=== PATIENT | male | born 1975 | race Caucasian/White ===

== ENCOUNTER 2019-11-06 12:47 | Emergency (ER) | payer OTHER ==
[2019-11-06] MEDS ORDERED: Diphtheria,Pertussis(Acell),Tetanus Vaccine 0.5 ML Syringe IM ONE (13:39)
--- NOTE | 2019-11-06 13:42 | EDM.PDOC ---
ED HPI GENERAL MEDICAL PROBLEM - General Chief Complaint: Upper Extremity Injury/Pain Stated Complaint: L SHOULDER INJURY Time Seen by Provider: 11/06/19 13:27 Source of Information: Reports: Patient History Limitations: Reports: No Limitations - History of Present Illness INITIAL COMMENTS - FREE TEXT/NARRATIVE: 44-year-old male presents to the ED for evaluation of an injury sustained in the workplace about an hour prior to arrival in the ED. 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 Somehow the laura slipped out of place and struck him in the posterior aspect of his left shoulder knocking him about 5 to 6 feet ahead and to the ground on his knees. He states since that time he can feel crepitus when he tries to move his shoulder particularly in abduction. Also painful abduction. Denies any other injuries. He does not know when his last tetanus toxoid was updated. 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: Other (see below) (.) Left Shoulder Pain Score (Numeric/FACES): 10 - Related Data Allergies Allergy/AdvReac Type Severity Reaction Status Date / Time No Known Allergies Allergy Verified 11/06/19 13:04 Home Meds: Home Meds oxyCODONE HCl/Acetaminophen [Percocet 5-325 mg Tablet] 1 - 2 each PO Q4H PRN #30 tablet 11/06/19 [Rx] polyethylene glycoL 3350 [MiraLAX] 17 gm PO DAILY #1 container 11/06/19 [Rx] Past Medical History - Past Health History Medical/Surgical History: Denies Medical/Surgical History Social & Family History - Tobacco Use Smoking Status *Q: Current Every Day Smoker Years of Tobacco use: 30 Packs/Tins Daily: 1.5 - Caffeine Use Caffeine Use: Reports: None - Recreational Drug Use Recreational Drug Use: Yes Recreational Drug Type: Reports: Marijuana/Hashish Review of Systems - Review of Systems Review Of Systems: See Below Constitutional: Reports: No Symptoms Eyes: Reports: No Symptoms Ears: Reports: No Symptoms Nose: Reports: No Symptoms Mouth/Throat: Reports: No Symptoms Respiratory: Reports: No Symptoms Cardiovascular: Reports: No Symptoms GI/Abdominal: Reports: No Symptoms Genitourinary: Reports: No Symptoms Musculoskeletal: Reports: Shoulder Pain, Back Pain (Occasional pauses low back pain) Skin: Reports: No Symptoms (Having left-sided posterior shoulder pain from blunt trauma today.) Neurological: Reports: No Symptoms Psychiatric: Reports: No Symptoms ED EXAM, GENERAL - Physical Exam Exam: See Below Exam Limited By: No Limitations General Appearance: Alert, WD/WN, Mild Distress, Other (Temperature is 36.4 pulse is 71 and sinus respiratory is 18 BP 146/87 O2 sats 96% on room air.) Eye Exam: Bilateral Eye: Normal Inspection, PERRL Respiratory/Chest: No Respiratory Distress, Lungs Clear, Normal Breath Sounds, No Accessory Muscle Use. No: Wheezing Cardiovascular: Normal Peripheral Pulses, Regular Rate, Rhythm, No Edema, No Gallop, No Murmur, No Rub Peripheral Pulses: 3+: Carotid (L), Carotid (R) Extremities: Other (Examination was limited to his shoulders. He has 3-4 linear superficial lacerations to the posterior lateral left shoulder. He has a hematoma in this area measuring approximately 7 cm in diameter. He has very limited ability to abduct the shoulder. He prefers to keep it in the position of comfort which is in abduction with his wrist on his abdomen.) Neurological: Alert, Oriented, CN II-XII Intact, Normal Cognition, Normal Gait Psychiatric: Normal Affect, Normal Mood Skin Exam: Warm, Dry, Normal Color, No Rash, Other (Linear laceration superfic ial to the posterior left shoulder. The longest of which is 2.5 cm.) Course - Vital Signs Last Recorded V/S: Last Vital Signs Temp 36.4 C 11/06/19 13:01 Pulse 71 11/06/19 13:01 Resp 18 11/06/19 13:01 BP 146/87 H 11/06/19 13:01 Pulse Ox 96 11/06/19 13:01 - Orders/Labs/Meds Orders: Active Orders 24 hr Category Date Time Status Vaccines to be Administered [RC] PER UNIT ROUTINE Care 11/06/19 13:39 Active Shoulder wo Cont Lt [CT] Stat Exams 11/06/19 13:36 Taken Durable Medical Equipment for Discharge [DME for Oth 11/06/19 14:38 Ordered Discharge] [COMM] Stat Meds: Medications Discontinued Medications Generic Name Dose Route Start Last Admin Trade Name Jame PRN Reason Stop Dose Admin Diphtheria/Tetanus/Acell Pertussis 0.5 ml 11/06/19 13:39 11/06/19 15:07 Adacel IM 11/06/19 13:40 0.5 ml .ONCE ONE Administration Ondansetron HCl 4 mg 11/06/19 14:38 11/06/19 15:05 Zofran Odt PO 11/06/19 14:39 4 mg ONETIME ONE Administration Oxycodone/Acetaminophen 2 tab 11/06/19 14:38 11/06/19 15:06 Percocet 325-5 Mg PO 11/06/19 14:39 2 tab ONETIME ONE Administration - Radiology Interpretation Free Text/Narrative:: 44-year-old male injured in the workplace today presents to the ED for evaluation of injury to the left posterior shoulder. 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 This drove him forward about 5 to 6 feet and then he fell to his knees. Since then he has pain and limited ability to abduct the shoulder on the left side. Examination reveals 3 linear superficial lacerations the largest of which is 2.5 cm the other 2 are about 2 cm in size in the site of hematoma about 7 cm in diameter posterior lateral left shoulder. Plan x-ray of the shoulder to be obtained - Re-Assessments/Exams Free Text/Narrative Re-Assessment/Exam: 11/06/19 13:35: Trays of the shoulder reveals an abnormality of the acromium process with it displaced inferiorly and appears to be some degree of comminution. Going to go ahead and CT the shoulder to get a better idea of its position and whether or not it would require surgical fixation. Usually these are left to heal on their own. He will also have his tetanus diphtheria and pertussis vaccine updated today. 11/06/19 14:00 Radiologist --Dr Clark has reported on the x-ray of the shoulder plain films. He feels the acromioclavicular joint appears to be within normal limits. He states there is abnormal mineralization within the acromium process possibly leading to a previous injury. Glenohumeral joint appears normal. No acute fracture or other bony abnormality is seen. Alignment of the humeral head to the glenoid on the Y scapular view is somewhat abnormal which is most likely positional. For we have a difference of opinion in the interpretation of the plain films. And I am going to CT his shoulder to confirm suspect injuries. 11/06/19 15:31 We have a preliminary report on the CT of the left shoulder. CT reveals a fracture identified at the base of the coracoid process. Mildly comminuted fracture is also noted involving the acromium process with displacement up to 8.5 mm. Scapula is otherwise intact. Humeral head appears intact. Fracture first rib felt to be present within the costochondral junction of the first rib. Clavicle shows no fractures. Left lung that is seen appears to be clear. Was able to speak with Dr. Barrera--orthopedic surgeon even though he is not on-call he is back in town is starting work tomorrow. He states that if the fracture is displaced more than 5 mm sometimes surgery is required. We will therefore have the patient call his office tomorrow and having a look at the films and decide if he needs to surgically repair or not. In the meantime the patient will be placed in a sling and swath. Discharged home on Percocet tabs 5/325 mg 1 or 2 every 4-6 hours for pain relief as needed. 30 tablets provided. Advised MiraLAX powder 17 g once daily as long as he is taking narcotic pain medication. Departure - Departure Time of Disposition: 15:33 Disposition: Home, Self-Care 01 Condition: Fair Clinical Impression: Acromial process of scapula fracture Qualifiers: Encounter type: initial encounter Fracture type: closed Fracture alignment: displaced Laterality: left Qualified Code(s): S42.122A - Displaced fracture of acromial process, left shoulder, initial encounter for closed fracture Fracture of one rib of left side Qualifiers: Encounter type: initial encounter Fracture type: closed Qualified Code(s): S22.32XA - Fracture of one rib, left side, initial encounter for closed fracture Closed coracoid process fracture Qualifiers: Encounter type: initial encounter Fracture alignment: nondisplaced Laterality: left Qualified Code(s): S42.135A - Nondisplaced fracture of coracoid process, left shoulder, initial encounter for closed fracture - Discharge Information *PRESCRIPTION DRUG MONITORING PROGRAM REVIEWED*: Not Applicable *COPY OF PRESCRIPTION DRUG MONITORING REPORT IN PATIENT AARON: Not Applicable Prescriptions: polyethylene glycoL 3350 [MiraLAX] 17 gm PO DAILY #1 container oxyCODONE HCl/Acetaminophen [Percocet 5-325 mg Tablet] 1 - 2 each PO Q4H PRN #30 tablet PRN Reason: pain relief. Referrals: PCP,None [Primary Care Provider] - Forms: ED Department Discharge Additional Instructions: Evaluation in the emergency room today in regards to work-related injury today. He was struck from behind by a 20 ton laura that was being used to lift heavy equipment. It displace itself and struck you in the posterior aspect of your left shoulder driving you forwards and then onto your knees. It is resulted in superficial lacerations x3 to the posterior aspect of the left shoulder. X-rays suggested a comminuted fracture of the acromium process of the shoulder blade. CT scan was therefore done and reveals that there is a mildly comminuted fracture of the acromial process with displacement up to 8.5 mm. Sometimes if that is more than 5 mm it requires surgery to repair. There is also a fracture identified at the base of the coracoid process of the shoulder blade. Scapula is otherwise intact. No injury to the arm bone. There is a fracture of the first rib at the costochondral junction. The whole collarbone shows no fracture. No injury to the left lung is appreciated. It is therefore immobilization with a sling and swath is placed in the ED. It should be worn at all times until directed otherwise by orthopedic surgeon. May apply ice pack to the area of tolerable 1/2-hour out of every 4 hours today and tomorrow. Wounds need to be cleansed on the back of the shoulder daily. Showering is okay. Then apply bacitracin or Polysporin to the wounds and cover with a bandage to keep clean. Pain medication Percocet 5/325 mg 1 or 2 tablets every 4-6 hours as needed for pain relief. You will likely have to sleep sitting up in an easy chair is getting into bed is nearly impossible with one arm immobilized. You are to phone Dr. Barrera's office tomorrow-the phone number is [phone]. I will send him your CT scans to be read and interpreted to see whether or not you would require surgical management. Sepsis Event Note (ED) - Evaluation Sepsis Screening Result: No Definite Risk - Focused Exam Vital Signs: Vital Signs Temp Pulse Resp BP Pulse Ox 11/06/19 13:01 36.4 C 71 18 146/87 H 96 - My Orders Last 24 Hours: My Active Orders 11/06/19 13:36 Shoulder wo Cont Lt [CT] Stat 11/06/19 13:39 Vaccines to be Administered [RC] PER UNIT ROUTINE 11/06/19 14:38 Durable Medical Equipment for Discharge [DME for Discharge] [COMM] Stat - Assessment/Plan Last 24 Hours: My Active Orders 11/06/19 13:36 Shoulder wo Cont Lt [CT] Stat 11/06/19 13:39 Vaccines to be Administered [RC] PER UNIT ROUTINE 11/06/19 14:38 Durable Medical Equipment for Discharge [DME for Discharge] [COMM] Stat
--- NOTE | 2019-11-06 13:44 | CR ---
Left shoulder: 3 views left shoulder were obtained. Acromioclavicular joint appears within normal limits. Mineralization appears somewhat abnormal within the acromion process possibly relating to previous injury. Glenohumeral joint appears normal. No acute fracture or other bony abnormality is seen. Alignment of the humeral head to the glenoid on the Y scapular view is somewhat abnormal which is most likely positional. Impression: 1. Findings as described above. Nothing acute is definitely appreciated. Diagnostic code #2 This report was dictated in MDT
[2019-11-06] MEDS ORDERED: Ondansetron 4 MG Tab.DIS PO ONE (14:38)
[2019-11-06] MEDS ORDERED: Acetaminophen/oxyCODONE 325-5 MG Tab PO ONE (14:38)
--- NOTE | 2019-11-07 08:04 | CT ---
CT left shoulder Technique: Multiple axial sections through the left shoulder were obtained. Comparison: Prior plain film study performed earlier on same day. Findings: Fracture is identified at the base of the coracoid process. Mildly comminuted fracture is also noted involving the acromion process with displacement up to 8.5 mm. Scapula is otherwise intact. Humeral head appears intact. Fracture is1 felt to be present within the costochondral junction of the 1st rib clavicle shows no fracture. Left lung that is seen appears to be clear. Impression: 1. Fracture at the base of the coracoid process and 2nd fracture involving the acromion process. 2nd fracture shows mild comminution and displacement. 2. Probable tear within the costochondral junction of the anterior 1st rib. 3. No additional abnormality is appreciated. Diagnostic code #3 This report was dictated in MDT MTDD
== END 2019-11-06 16:00 | disposition home or self-care (01) ==
LOC: JD.ED 12:47
DX: S22.32XA Fracture of one rib, left side, initial encounter for closed fracture (principal); S42.122A Displaced fracture of acromial process, left shoulder, initial encounter for closed fracture; S42.135A Nondisplaced fracture of coracoid process, left shoulder, initial encounter for closed fracture; F17.210 Nicotine dependence, cigarettes, uncomplicated; Z23 Encounter for immunization; W01.0XXA Fall on same level from slipping, tripping and stumbling without subsequent striking against object, initial encounter
CPT/HCPCS: 73030; 73200; 90471; 90715; 99284; A9270

== ENCOUNTER 2020-07-08 15:37 | Emergency (ER) | payer OTHER ==
--- NOTE | 2020-07-08 16:39 | CR ---
Right fourth finger: 3 views centered to the right fourth finger were obtained. Comparison: No prior finger or hand exam is available. Soft tissue and bony amputation is seen within the distal fourth finger. Fracture is noted within the phalanx which is slightly comminuted and mildly displaced. No proximal abnormality is appreciated. Impression: 1. Soft tissue and bony amputation of the distal right fourth finger with additional fractures within the distal phalanx. Diagnostic code #3
[2020-07-08] MEDS ORDERED: Bupivacaine 0.5% 10 ML SDV INJECT ONE ×2 (17:33→17:50)
[2020-07-08] MEDS ORDERED: HYDROmorphone 1 MG/ML Syringe IM ONE (17:37)
[2020-07-08] MEDS ORDERED: ceFAZolin 1 GM in Premix Bag 1 BAG IV ONE (17:50)
--- NOTE | 2020-07-08 17:59 | EDM.PDOC ---
ED HPI GENERAL MEDICAL PROBLEM - General Chief Complaint: Upper Extremity Injury/Pain Stated Complaint: RIGHT INDEX FINGER LAC Time Seen by Provider: 07/08/20 15:53 Source of Information: Reports: Patient History Limitations: Reports: No Limitations - History of Present Illness INITIAL COMMENTS - FREE TEXT/NARRATIVE: 45-year-old male presents to the emergency department the injury to his right finger. Patient was working around an excavator and trying to hook it up when he sustained a crush injury and had his finger pinched. Right Hand Pain Score (Numeric/FACES): 10 - Related Data Allergies Allergy/AdvReac Type Severity Reaction Status Date / Time No Known Allergies Allergy Verified 07/08/20 15:50 Home Meds: Home Meds oxyCODONE HCl/Acetaminophen [Percocet 5-325 mg Tablet] 1 - 2 each PO Q4H PRN #30 tablet 11/06/19 [Rx] polyethylene glycoL 3350 [MiraLAX] 17 gm PO DAILY #1 container 11/06/19 [Rx] Past Medical History - Past Health History Medical/Surgical History: Denies Medical/Surgical History Social & Family History - Tobacco Use Tobacco Use Status *Q: Current Every Day Tobacco User Years of Tobacco use: 20 Packs/Tins Daily: 1 - Caffeine Use Caffeine Use: Reports: None - Recreational Drug Use Recreational Drug Use: No Review of Systems - Review of Systems Review Of Systems: Comprehensive ROS is negative, except as noted in HPI. ED EXAM, GENERAL - Physical Exam Exam: See Below Exam Limited By: No Limitations General Appearance: Alert, WD/WN, Moderate Distress Ears: Hearing Grossly Normal Throat/Mouth: Normal Voice, No Airway Compromise Head: Atraumatic, Normocephalic Neck: Normal Inspection, Supple, Non-Tender Respiratory/Chest: No Respiratory Distress Neurological: Alert, Oriented, Normal Cognition Skin Exam: Warm, Dry, Normal Color, No Rash, Wound/Incision (Amputation of right distal ring finger at the tip in line with the nailbed. There is bone that is visible.) Course - Vital Signs Text/Narrative:: 45-year-old male with crush injury and amputation of the tip of his right distal ring finger. 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 Distal tip of the finger is missing right at the line of the nailbed with bone visible. There is no flap to suture. I did speak with Dr. Chang, orthopedic surgeon, at [facility] in [place]. He did agree to accept this patient as a direct admit to the emergency department to repair the injury. X-rays were pushed to him to review. He did request that I perform a digital block on the patient, give a gram of IV Ancef and make sure his tetanus is up-to-date the patient states he last had a tetanus shot in October 2019. Distal block was performed using 0.5% bupivacaine on the right ring finger. The patient also received a milligram of IM Dilaudid for pain control. Last Recorded V/S: Last Vital Signs Temp 98.2 F 07/08/20 15:48 Pulse 100 07/08/20 15:48 Resp 16 07/08/20 15:48 BP 153/95 H 07/08/20 15:48 Pulse Ox 97 07/08/20 15:48 - Orders/Labs/Meds Meds: Medications Discontinued Medications Generic Name Dose Route Start Last Admin Trade Name Jame PRN Reason Stop Dose Admin Bupivacaine HCl 10 ml 07/08/20 17:33 Sensorcaine-Mpf 0.5% INJECT 07/08/20 17:34 ONETIME ONE - Radiology Interpretation Free Text/Narrative:: X-ray radiologist impression: 1. Soft tissue and bony amputation of the distal right fourth finger with additional fractures within the distal phalanx. - Re-Assessments/Exams Free Text/Narrative Re-Assessment/Exam: 07/08/20 18:[address] some quick clot on the tip of the right distal ring finger and a pressure dressing. Patient will be transferred to [facility] emergency department in [place] as a direct admit to the emergency department. Dr. Chang will see him there. Departure - Departure Time of Disposition: 18:04 Disposition: DC/Tfer to Acute Hospital 02 Condition: Good Clinical Impression: Amputation of right ring finger - Discharge Information Referrals: PCP,None [Primary Care Provider] - Sepsis Event Note (ED) - Evaluation Sepsis Screening Result: No Definite Risk - Focused Exam Vital Signs: Vital Signs Temp Pulse Resp BP Pulse Ox 07/08/20 15:48 98.2 F 100 16 153/95 H 97
== END 2020-07-08 18:45 ==
LOC: JD.ED 15:37
DX: S68.624A Partial traumatic transphalangeal amputation of right ring finger, initial encounter (principal); Z72.0 Tobacco use; W23.0XXA Caught, crushed, jammed, or pinched between moving objects, initial encounter
CPT/HCPCS: 64450; 73140; 96372; 96374; 99284; J0690; J1170; J3490

== ENCOUNTER 2024-04-06 07:15 | Day surgery (SDC) | payer OTHER ==
[2024-04-06] MEDS: Lactated Ringers 1,000 ML IV SCH (07:45)
[2024-04-06] MEDS ORDERED: Propofol 200 MG/20 ML SDV ONE (08:50)
[2024-04-06] MEDS ORDERED: Lidocaine 2% 5 ML SDV ONE (08:51)
[2024-04-06] MEDS ORDERED: Midazolam 1 MG/ML 2 ML SDV ONE (08:51)
[2024-04-06] MEDS ORDERED: fentaNYL 100 MCG/2 ML SDV ONE (08:52)
[2024-04-06] MEDS ORDERED: Dexamethasone 4 MG/ML 5 ML MDV ONE (08:52)
[2024-04-06] MEDS ORDERED: ceFAZolin 2 GM Vial ONE (08:52)
[2024-04-06] MEDS ORDERED: Ondansetron 4 MG/2 ML SDV ONE (08:52)
[2024-04-06] MEDS ORDERED: Sodium Chloride 0.9% 10 ML Syringe FLUSH SCH (09:00)
[2024-04-06] MEDS: EPINEPHrine 1 MG/ML SDV ONE (10:13)
[2024-04-06] MEDS ORDERED: Ondansetron 4 MG/2 ML SDV IVPUSH PRN (10:40)
[2024-04-06] MEDS ORDERED: fentaNYL 100 MCG/2 ML SDV IVPUSH PRN (10:40)
[2024-04-06] MEDS ORDERED: HYDROmorphone 0.5 MG/0.5 ML Syringe IVPUSH PRN (10:40)
== END 2024-04-06 11:48 | disposition home or self-care (01) ==
LOC: JD.SDS 07:15
PROVIDERS: ATTEND Orthopaedic Surgery
DX: S83.241A Other tear of medial meniscus, current injury, right knee, initial encounter (principal); X58.XXXA Exposure to other specified factors, initial encounter
CPT/HCPCS: 29881; 87641; J0171; J0690; J1100; J2250; J2405; J2704; J3010; J7120; J3490